=== PATIENT | female | born 1990 | race Hispanic/Latino ===

== ENCOUNTER 2019-09-15 07:40 | Outpatient (CLI) | payer BC ==
--- NOTE | 2019-09-15 12:03 | NM ---
HEPATOBILIARY SCAN: HISTORY:Nausea RADIOPHARMACEUTICAL: 4.8 mCi Technetium 99m Mebrofenin injected intravenously FINDINGS: There is normal tracer extraction by the liver with normal excretion into the biliary tracts and smal l bowel loops and normal filling of the gallbladder. The calculated gallbladder ejection fraction following an oral fatty meal measures 38%. IMPRESSION:Normal exam.
== END 2019-09-15 07:41 | disposition home or self-care (01) ==
LOC: NM 07:40
DX: R10.13 Epigastric pain (principal); D69.6 Thrombocytopenia, unspecified; K82.4 Cholesterolosis of gallbladder; R11.0 Nausea
CPT/HCPCS: 78227; A9537